=== PATIENT | female | born 2000 | race Caucasian/White ===

== ENCOUNTER 2024-01-06 14:02 | Outpatient (CLI) | payer BC | END 2024-01-06 14:03 | disposition home or self-care (01) | LOC: CSHULT 14:02 | PROVIDERS: ATTEND Obstetrics & Gynecology | DX: O09.90 Supervision of high risk pregnancy, unspecified, unspecified trimester (principal); O12.03 Gestational edema, third trimester | CPT/HCPCS: 93306 ==

== ENCOUNTER 2024-02-04 21:25 | Observation (INO) | payer BC ==
[2024-02-04 21:53] VITALS: BMI 51.2
[2024-02-04] MEDS ORDERED: Ondansetron PF 4 MG/2 ML Vial IVP PRN (22:56)
[2024-02-04] MEDS ORDERED: Promethazine HCl 25 MG/ML VIAL IM PRN (22:56)
[2024-02-04] MEDS ORDERED: hydrALAZINE 20 MG/ML VIAL SLOW IVP PRN ×2 (22:56)
[2024-02-04 23:44] LABS: Creatinine, Urine 53.99 mg/dL (47-110)
[2024-02-05 00:05] LABS: #Basophils 0.04 10x3/uL (0.0-0.2); #Eosinophils 0.13 10x3/uL (0.0-0.5); #Neutrophils 6.95 10x3/uL (1.5-8.4); %Basophils 0.4 % (0.0-2.0); %Eosinophils 1.3 % (0.0-6.0); %Lymphocytes 26.2 % (18.0-47.0); %Monocytes 4.8 % (0.0-10.0); %Neutrophils 66.9 % (40.0-75.0); Hematocrit 31.4 % (34.9-44.5); Hemoglobin 10.5 g/dL (12.0-15.5); Mean Corpuscular HGB CONC 33.4 g/dL (32.0-36.0); Mean Corpuscular Hemoglobin 27.9 pg (27.0-33.0); Mean Corpuscular Volume 83.5 fL (81.6-98.3); Mean Platelet Volume 9.7 fL (7.4-10.4); Platelet Count 363 10x3/uL (150-450); RBC Distribution Width 18.3 % (11.5-14.5); Red Blood Cell (RBC) Count 3.76 10x6/uL (3.90-5.03); White Blood Cell (WBC) Count 10.4 10x3/uL (3.5-10.5)
[2024-02-05 00:19] LABS: ALT (SGPT) Less than 7 U/L (8-55); AST (SGOT) 10 U/L (5-34); Albumin Less than 1.0 g/dL (3.5-5.0); Alkaline Phosphatase 120 U/L (40-110); Anion Gap 13 mmol/L (10-20); BUN (Urea Nitrogen) 6 mg/dL (7.0-18.7); Bilirubin, Total Less than 0.2 mg/dL (0.2-1.2); Calc. Creatinine Clearance 398 mL/min (70-130); Carbon Dioxide 20 mmol/L (22-29); Chloride 104 mmol/L (98-107); Estimated GFR 133; Glucose 86 mg/dL (70-105); Protein, Total 5.4 g/dL (6.0-8.3); Sodium 134 mmol/L (136-145)
[2024-02-05] MEDS: Potassium Chloride 20 MEQ TAB PO SCH ×2 (01:33→09:19)
[2024-02-05] MEDS ORDERED: [UNRECOGNIZED DRUG - OTHER] PO SCH (09:00)
[2024-02-05] MEDS ORDERED: IRON PO SCH (09:00)
[2024-02-05] MEDS ORDERED: Enoxaparin 40 MG (0.4 mL) SYRINGE SC SCH (09:00)
[2024-02-05] MEDS ORDERED: FOLIC PO SCH (09:00)
[2024-02-05] MEDS ORDERED: OMEGA3 PO SCH (09:00)
[2024-02-05] MEDS ORDERED: PRENATAL PO SCH (09:00)
[2024-02-05] MEDS: Ferrous Sulfate 325 MG TAB PO SCH (09:18)
[2024-02-05] MEDS: Prenatal Vitamin 1 TAB PO SCH (09:18)
[2024-02-05] MEDS: Furosemide 20 MG TAB PO SCH (09:19)
== END 2024-02-05 09:52 | disposition home or self-care (01) ==
LOC: CSHLD/OP 21:25 → CSHLD 23:48
PROVIDERS: ADMIT Obstetrics & Gynecology; ATTEND Obstetrics & Gynecology
DX: O36.8130 Decreased fetal movements, third trimester, not applicable or unspecified (principal); O99.891 Other specified diseases and conditions complicating pregnancy; R03.0 Elevated blood-pressure reading, without diagnosis of hypertension; O26.833 Pregnancy related renal disease, third trimester; O13.3 Gestational [pregnancy-induced] hypertension without significant proteinuria, third trimester; O14.93 Unspecified pre-eclampsia, third trimester; Z3A.34 34 weeks gestation of pregnancy; Z79.899 Other long term (current) drug therapy; Z98.890 Other specified postprocedural states
CPT/HCPCS: 76815; 76819; 80053; 82570; 84156; 85025; 99285; G0378